=== PATIENT | female | born 1980 | race Caucasian/White ===

== ENCOUNTER 2017-05-18 09:59 | Emergency (ER) | payer MEDICAID ==
[2017-05-18] VITALS (7 sets, daily range): BP systolic 90–123; BP diastolic 55–74; PULSE 55–66; RESP 16–18; TEMP 98.4; O2SAT 95–100
[~2017-05-18] VITALS: Ht 175.3 cm; Wt 108.0 kg
[~2017-05-18 09:59] MED LIST: NAPR500T PO; ZOFR4TAB3 SL
[2017-05-18] MEDS ORDERED: VANCOMYCIN INJ 1,500 MG in SODIUM CHLORID 0.9% 500 ML INJ 500 ML IV STA (10:40)
[2017-05-18] MEDS ORDERED: PIPERACIL-TAZO 4.5 GM PREMIX 100 ML IV STA (10:40)
[2017-05-18] MEDS ORDERED: SODIUM CHLOR 0.9% 1000 ML INJ 1,000 ML IV ONE ×2 (10:45)
[2017-05-18] MEDS ORDERED: HYDROmorphone HCL PF 1 MG/ML VIAL IV PUSH ONE (10:45)
[2017-05-18] MEDS ORDERED: ONDANSETRON HCL 4 MG/2 ML VIAL IV PUSH ONE (10:45)
--- NOTE | 2017-05-18 10:52 | PD ---
HPI Chief Complaint: right leg pain Time Seen by Provider: 10:35 Travel History International Travel<30 days: No Contact w/Intl Traveler<30days: No Traveled to known affect area: No History of Present Illness HPI This 36-year-old female is complaining of pain in the back of her right leg. He says that Thursday night she was walking his dog and she felt something bite her insect transient pain. She had some discomfort that yesterday the pain got a lot worse this morning around 5:00 she woke up with pain and at that time was not able to put weight on her leg. She is feeling nauseated now. She has no history of hypertension or diabetes. Not aware of fever. PFSH Past Medical History Cancer: No Cardiovascular Problems: No Diabetes: No Diminished Hearing: No Endocrine: No Gastrointestinal Disorders: No Genitourinary: No Hepatitis: No Hiatal Hernia: No Hypertension: No Immune Disorder: No Musculoskeletal: No Neurologic: No Psychiatric: No Reproductive: Yes (ENDOMETRIOSIS, fibroids, ovarian cyst) Respiratory: No Immunizations Current: Yes Thyroid Disease: No : 8 Para: 2 Miscarriage: 6 : 0 Tubal Ligation: Yes Past Surgical History Abdominal Surgery: Yes (EXPLORATORY LAP) AICD: No Cardiac Surgery: No Ear Surgery: No Endocrine Surgery: No Eye Surgery: No Genitourinary Surgery: No Gynecologic Surgery: Yes (Bilateral Tubal Ligation) Joint Replacement: No Neurologic Surgery: No Oral Surgery: Yes (Tonsillectomy) Pacemaker: No Thoracic Surgery: No Other Surgery: Yes Social History Alcohol Use: No Tobacco Use: No (quit) Substance Use: No Allergies-Medications (Allergen,Severity, Reaction): Coded Allergies: bee venom protein (honey bee) (Unverified Allergy, Severe, Anaphylaxis, ) doxycycline (Unverified Allergy, Intermediate, HIVES, 05/18/17) Reported Meds & Prescriptions Reported Meds & Active Scripts Active No Active Prescriptions or Reported Medications Review of Systems General / Constitutional: No: Fever, Chills Eyes: No: Diploplia, Blurred Vision HENT: No: Headaches, Vertigo Cardiovascular: No: Chest Pain or Discomfort Respiratory: No: Cough, Shortness of Breath Gastrointestinal: No: Nausea, Vomiting Genitourinary: No: Urgency, Frequency Musculoskeletal: Positive: Pain Skin: Positive Rash Psychiatric: No: Anxiety, Depression Physical Exam Narrative GENERAL: Well-developed female SKIN: Focused skin assessment warm/dry. HEAD: Atraumatic. Normocephalic. EYES: Pupils equal and round. No scleral icterus. No injection or drainage. ENT: No nasal bleeding or discharge. Mucous membranes pink and moist. NECK: Trachea midline. No JVD. CARDIOVASCULAR: Regular rate and rhythm. No murmur appreciated. RESPIRATORY: No accessory muscle use. Clear to auscultation. Breath sounds equal bilaterally. GASTROINTESTINAL: Abdomen soft, non-tender, nondistended. Hepatic and splenic margins not palpable. MUSCULOSKELETAL: No obvious deformities. No clubbing. No cyanosis. No edema. There is erythema and swelling of the posterior aspect of the right calf. There is some ecchymosis in this area NEUROLOGICAL: Awake and alert. No obvious cranial nerve deficits. Motor grossly within normal limits. Normal speech. PSYCHIATRIC: Appropriate mood and affect; insight and judgment normal. Data Data Last Documented VS Vital Signs Date Time Temp Pulse Resp B/P (MAP) Pulse Ox O2 Delivery O2 Flow Rate FiO2 05/18/17 12:10 58 16 97/60 (72) 100 05/18/17 10:05 98.4 Orders Orders Complete Blood Count With Diff (05/18/17 10:40) Comprehensive Metabolic Panel (05/18/17 10:40) Prothrombin Time / Inr (Pt) (05/18/17 10:40) Act Partial Throm Time (Ptt) (05/18/17 10:40) Lactic Acid Sepsis Protocol (05/18/17 10:40) Urinalysis - C+S If Indicated (05/18/17 10:40) Blood Culture (05/18/17 10:40) Blood Glucose (05/18/17 10:40) Ecg Monitoring (05/18/17 10:40) Iv Access Insert/Monitor (05/18/17 10:40) Oximetry (05/18/17 10:40) Oxygen Administration (05/18/17 10:40) Piperacil-Tazo 4.5 Gm Premix (Zosyn 4.5 (05/18/17 10:40) Vancomycin Inj (Vancomycin Inj) (05/18/17 10:40) Sodium Chlor 0.9% 1000 Ml Inj (Ns 1000 M (05/18/17 10:45) Sodium Chlor 0.9% 1000 Ml Inj (Ns 1000 M (05/18/17 10:45) Ondansetron Inj (Zofran Inj) (05/18/17 10:45) Hydromorphone Pf Inj (Dilaudid Pf Inj) (05/18/17 10:45) Labs Laboratory Tests Test 05/18/17 10:58 White Blood Count 9.6 TH/MM3 Red Blood Count 4.53 MIL/MM3 Hemoglobin 12.3 GM/DL Hematocrit 38.0 % Mean Corpuscular Volume 83.9 FL Mean Corpuscular Hemoglobin 27.1 PG Mean Corpuscular Hemoglobin Concent 32.4 % Red Cell Distribution Width 14.1 % Platelet Count 296 TH/MM3 Mean Platelet Volume 8.6 FL Neutrophils (%) (Auto) 54.8 % Lymphocytes (%) (Auto) 37.2 % Monocytes (%) (Auto) 6.1 % Eosinophils (%) (Auto) 1.5 % Basophils (%) (Auto) 0.4 % Neutrophils # (Auto) 5.3 TH/MM3 Lymphocytes # (Auto) 3.6 TH/MM3 Monocytes # (Auto) 0.6 TH/MM3 Eosinophils # (Auto) 0.1 TH/MM3 Basophils # (Auto) 0.0 TH/MM3 CBC Comment DIFF FINAL Differential Comment Prothrombin Time 10.7 SEC Prothromb Time International Ratio 1.0 RATIO Activated Partial Thromboplast Time 32.0 SEC Blood Urea Nitrogen 9 MG/DL Creatinine 0.85 MG/DL Random Glucose 88 MG/DL Total Protein 8.4 GM/DL Albumin 3.8 GM/DL Calcium Level 8.5 MG/DL Alkaline Phosphatase 92 U/L Aspartate Amino Transf (AST/SGOT) 17 U/L Alanine Aminotransferase (ALT/SGPT) 23 U/L Total Bilirubin 0.5 MG/DL Sodium Level 139 MEQ/L Potassium Level 3.9 MEQ/L Chloride Level 105 MEQ/L Carbon Dioxide Level 27.4 MEQ/L Anion Gap 7 MEQ/L Estimat Glomerular Filtration Rate 76 ML/MIN Lactic Acid Level 0.8 mmol/L MDM Medical Decision Making Medical Screen Exam Complete: Yes Emergency Medical Condition: Yes Medical Record Reviewed: Yes Differential Diagnosis Differential includes sepsis, cellulitis Narrative Course Her hemoglobin is 12.3 with a white count of 9.6. Lactate is 0.8. Patient has been given an initial dose of intravenous antibiotics but appears stable for outpatient treatment. I will prescribe Keflex and Bactrim. Diagnosis Primary Impression: Cellulitis of leg without foot, right Scripts Ondansetron Odt (Zofran Odt) 4 Mg Tab 4 MG SL Q6HR Y for Nausea/Vomiting, #6 TAB 0 Refills Prov: Yariel Aly MD 05/18/17 Oxycodone-Acetaminophen (Percocet) 7.5-325 mg Tab 1 TAB PO Q4H Y for PAIN, #15 TAB 0 Refills Prov: Yariel Aly MD 05/18/17 Sulfamethoxazole-Trimethoprim (Bactrim DS) 800-160 Mg Tab 1 TAB PO BID for Infection, #14 TAB 0 Refills Prov: Yariel Aly MD 05/18/17 Cephalexin (Keflex) 500 Mg Cap 500 MG PO Q6H for Infection for 7 Days, CAP 0 Refills Prov: Yariel Aly MD 05/18/17 Disposition: 01 DISCHARGE HOME Condition: Stable Yariel Aly MD May 18, 2017 10:52
[2017-05-18 11:11] LABS: AUTOMATED NEUTROPHIL # 5.3 TH/MM3 (1.8-7.7); BASOPHIL % 0.4 % (0.0-2.0); EOSINOPHIL # 0.1 TH/MM3 (0-0.4); EOSINOPHIL % 1.5 % (0.0-4.0); HEMO FLAGS DIFF FINAL; LYMPH % 37.2 % (9.0-44.0); LYMPHOCYTE # 3.6 TH/MM3 (1.0-4.8); MEAN CELL VOLUME 83.9 FL (80.0-100.0); MEAN CORPUSCULAR HEMOGLOBIN 27.1 PG (27.0-34.0); MEAN CORPUSCULAR HGB CONC 32.4 % (32.0-36.0); MONO % 6.1 % (0.0-8.0); NEUT % 54.8 % (16.0-70.0); PLATELET COUNT 296 TH/MM3 (150-450); RED BLOOD COUNT 4.53 MIL/MM3 (4.00-5.30); RED CELL DISTRIBUTION WIDTH 14.1 % (11.6-17.2); WHITE BLOOD COUNT 9.6 TH/MM3 (4.0-11.0)
[2017-05-18 11:21] LABS: CHLORIDE 105 MEQ/L (98-107); POTASSIUM 3.9 MEQ/L (3.5-5.1); SODIUM (NA) 139 MEQ/L (136-145)
[2017-05-18 11:25] LABS: PROTHROMBIN TIME - PATIENT 10.7 SEC (9.8-11.6)
[2017-05-18 11:26] LABS: ANION GAP 7 MEQ/L (5-15); BICARBONATE 27.4 MEQ/L (21.0-32.0)
[2017-05-18 11:27] LABS: BLOOD UREA NITROGEN 9 MG/DL (7-18)
[2017-05-18 11:29] LABS: ALT (GPT) 23 U/L (10-53)
[2017-05-18 11:30] LABS: AST (GOT) 17 U/L (15-37); GLOMERULAR FILTRATION RATE 76 ML/MIN (>89)
[2017-05-18 11:31] LABS: TOTAL BILIRUBIN ADULT 0.5 MG/DL (0.2-1.0)
[2017-05-18 11:32] LABS: ALKALINE PHOSPHATASE 92 U/L (45-117)
[2017-05-18] MEDS ORDERED: BACT800T5 PO (12:17)
[2017-05-18] MEDS ORDERED: PERC7.5T13 PO (12:17)
[2017-05-18] MEDS ORDERED: CEPH-460 PO (12:17)
[2017-05-18] MEDS ORDERED: ZOFR4TAB3 SL (12:17)
[2017-05-18 12:31] LABS: BLOOD, URINE TRACE (NEG); GLUCOSE,URINE NEG (NEG); KETONE, URINE NEG (NEG); NITRITE,URINE NEG (NEG); PH, URINE 5.5 (5.0-8.5)
[2017-05-18 12:41] LABS: URINE COLOR YELLOW (YELLW/STRAW)
[2017-05-18 12:43] LABS: BACTERIA, URINE FEW /hpf; COMMENT (UR) CULTURE INDICATED; CULTURE IF INDICATED CULTURE INDICATED; SQUAMOUS EPITHELIAL CELL URINE >8 /hpf (0-5)
== END 2017-05-18 15:12 | disposition home or self-care (01) ==
LOC: PHED 09:59
DX: L03.115 Cellulitis of right lower limb (principal); B96.89 Other specified bacterial agents as the cause of diseases classified elsewhere; R82.71 Bacteriuria; M79.604 Pain in right leg
CPT/HCPCS: 80053; 81001; 83605; 85025; 85610; 85730; 87040; 87086; 96361; 96365; 96366; 96375; 99284; E0113; J1170; J2405; J2543; J3370; J7030; J7040